=== PATIENT | male | born 1995 | race Hispanic/Latino ===

== ENCOUNTER 2022-09-28 18:26 | Emergency (ER) | payer SELFPAY ==
[~2022-09-28] VITALS: Ht 182.9 cm; Wt 188.7 kg
[~2022-09-28 18:26] MED LIST: AUGMENTIN 500-1 EACH PO; BENZONATATE200 MG PO; METFORMIN HCL500 MG PO; PAXLOVID 300-11 EACH PO; PROVENTIL HFA6.7 GM INH; ULTRAM 50MG50 MG PO
[2022-09-28] MEDS ORDERED: IBUPROFEN 600 MG TAB PO STA (18:40)
[2022-09-28 21:06] VITALS: O2SAT 100
== END 2022-09-28 21:10 | disposition home or self-care (01) ==
LOC: ER 18:26
DX: S60.221A Contusion of right hand, initial encounter (principal); S70.01XA Contusion of right hip, initial encounter; S70.11XA Contusion of right thigh, initial encounter; W01.0XXA Fall on same level from slipping, tripping and stumbling without subsequent striking against object, initial encounter; Y93.01 Activity, walking, marching and hiking; Y99.0 Civilian activity done for income or pay; I10 Essential (primary) hypertension
CPT/HCPCS: 99283

== ENCOUNTER 2024-05-06 01:06 | Emergency (ER) | payer SELFPAY ==
[~2024-05-06] VITALS: Ht 182.9 cm; Wt 188.7 kg
[~2024-05-06 01:06] MED LIST changes: +AMOX TR-K CLV1 EAC2 PO; +ONDANSETRON ODT4 MG PO
[2024-05-06 01:15] VITALS: RESP 16; TEMP 99.4
[2024-05-06] MEDS ORDERED: SODIUM CHLORIDE 0.9% 1000ML 1,000 ML ONE (01:20)
[2024-05-06] MEDS: SODIUM CHLORIDE 0.9% 1000ML 1,000 ML IV ONE (01:25)
[2024-05-06 01:35] LABS: BASOPHILS % 0.4 % (0.0-1.0); EOSINOPHILS # (AUTO) 0.2 (0.0-0.4); EOSINOPHILS % 2.6 % (0.0-6.0); HEMATOCRIT 41.9 % (38.2-49.6); HEMOGLOBIN 12.9 g/dL (14.0-18.0); LYMPHOCYTES # (AUTO) 1.7 (1.0-3.2); LYMPHOCYTES % 18.3 % (18.0-39.1); MEAN CORPUSCULAR HEMOGLOBIN 27.8 pg (28-32); MEAN CORPUSCULAR HGB CONC 30.8 g/dL (31-35); MEAN CORPUSCULAR VOLUME 90.3 fL (81-99); MONOCYTES # (AUTO) 0.9 (0.2-0.8); MONOCYTES % 10.4 % (4.4-11.3); NEUTROPHILS # (AUTO) 6.1 (2.1-6.9); NEUTROPHILS % 68.2 % (38.7-80.0); PLATELET COUNT 242 x10e3/uL (140-360); RED BLOOD COUNT 4.64 x10e6/uL (4.3-5.7); RED CELL DISTRIBUTION WIDTH 14.3 % (11.7-14.4); WHITE BLOOD COUNT 9.01 x10e3/uL (4.8-10.8)
[2024-05-06] MEDS: ONDANSETRON HCL INJ 2MG/ML 2ML 2 MG/ML VIAL IV STA (01:50)
[2024-05-06] MEDS: MECLIZINE HCL 12.5 MG TAB PO ONE (01:50)
[2024-05-06 02:00] LABS: ALBUMIN 3.4 g/dL (3.5-5.0); ALBUMIN/GLOBULIN RATIO 0.9 (0.8-2.0); ANION GAP 12.6 mmol/L (8-16); BILIRUBIN,TOTAL 0.3 mg/dL (0.2-1.2); CALCIUM 9.1 mg/dL (8.4-10.2); CREATININE, SERUM 0.95 mg/dL (0.72-1.25); POTASSIUM 3.6 mmol/L (3.5-5.1); TOTAL PROTEIN 7.2 g/dL (6.5-8.1)
[2024-05-06 02:30] VITALS: PULSE 100
[2024-05-06] MEDS ORDERED: ANTIVERT25 M1 PO (02:52)
[2024-05-06 03:05] VITALS: BP 132/84; O2SAT 95
== END 2024-05-06 03:07 | disposition home or self-care (01) ==
LOC: ER 01:10
DX: R50.9 Fever, unspecified (principal); R42 Dizziness and giddiness; R11.2 Nausea with vomiting, unspecified; R19.7 Diarrhea, unspecified; R20.0 Anesthesia of skin; I10 Essential (primary) hypertension
CPT/HCPCS: 36415; 70450; 80053; 85025; 99284; J2405; J7030; J8597

== ENCOUNTER 2024-06-01 15:08 | Emergency (ER) | payer SELFPAY ==
[~2024-06-01] VITALS: Ht 182.9 cm; Wt 188.7 kg
[~2024-06-01 15:08] MED LIST changes: +ANTIVERT25 M1 PO
[2024-06-01 15:58] VITALS: TEMP 98.1
[2024-06-01] MEDS: FLUORESCEIN SOD(OPTH) 1 MG STRP OP ONE (16:35)
[2024-06-01] MEDS: TETRACAINE HCL 0.5% OPTH SOLN 4 ML BTL OP ONE (16:36)
[2024-06-01] MEDS ORDERED: VIGAMOX3 ML OS (17:36)
[2024-06-01 17:40] VITALS: PULSE 81; RESP 18; O2SAT 100
[2024-06-01] MEDS ORDERED: LISINOPRIL10 MG PO (17:46)
== END 2024-06-01 17:52 | disposition home or self-care (01) ==
LOC: ER 16:02
DX: H57.12 Ocular pain, left eye (principal); H10.9 Unspecified conjunctivitis; H49.22 Sixth [abducent] nerve palsy, left eye; I10 Essential (primary) hypertension
CPT/HCPCS: 99283